=== PATIENT | male | born 1985 | race Caucasian/White ===

== ENCOUNTER → 2020-09-24 | Outpatient (CLI) | payer OTHER ==
--- NOTE | 2020-09-24 17:43 | KCIC ---
Three-view left knee dated 09/24/2020. No comparison available. CLINICAL INDICATION: Medial knee pain after injury. FINDINGS: 3 views left knee show normal bony alignment. No displaced fracture. No periostitis or bone destructi on. No apparent joint effusion or loose body. IMPRESSION: No acute findings. Electronically signed by: Erasto Ocasio MD (09/24/2020 5:40 PM) [id number]
== END ==
LOC: KCIC 14:40
PROVIDERS: ATTEND Family Medicine
DX: M25.562 Pain in left knee (principal)
CPT/HCPCS: 73562

== ENCOUNTER → 2021-06-19 | Outpatient (CLI) | payer OTHER ==
--- NOTE | 2021-06-19 12:59 | KCIC ---
MRI of the cervical spine without contrast 06/19/2021 CLINICAL HISTORY: Neck pain with radiates down the right arm for 2 weeks. TECHNIQUE: Unenhanced T1-weighted, T2-weighted and inversion recovery sagittal and gradient echo and T2-weighted axial images of the cervical spine were obtained. FINDINGS: Minimal lateral curvature of the cervical spine is seen convex to the right. There is strai ghtening of the normal cervical lordosis. Degenerative signal changes are seen involving all of the d isks of the cervical spine. Degenerative signal changes are seen within the marrow surrounding these discs. No area of abnormal signal intensity is seen involving the cervical spinal cord. At the C2-3 disc space there is a minimal generalized disc bulge. Degenerative changes are seen invol ving the uncovertebral and facet joints bilaterally. These findings do not result in significant cent ral spinal canal or neural foraminal stenosis. At the C3-4 disc space there is a mild generalized disc bulge. Degenerative changes are seen involvin g the uncovertebral and facet joints, left greater than right. These findings when combined do not re sult in significant central spinal canal stenosis. Mild left neural foraminal stenosis is seen. The r ight neural foramen is patent. At the C4-5 disc space there is a mild generalized disc bulge. Superimposed on this disc bulge is a r ight paracentral/lateral focal disc herniation. This measures 6 mm in AP diameter. Degenerative montaño es are seen involving the uncovertebral and facet joints bilaterally. These findings when combined re sult in mild central spinal canal stenosis without evidence of cord impingement. Severe right lateral recess stenosis and proximal right neural foraminal stenosis is seen. The left neural foramen is pat ent. At the C5-6 disc space there is a mild generalized disc bulge. Degenerative changes are seen involvin g the uncovertebral and facet joints bilaterally. These findings when combined do not result in signi ficant central spinal canal or neural foraminal stenosis. At the C6-7 disc space there is a mild generalized disc bulge. Degenerative changes are seen involvin g the uncovertebral and facet joints bilaterally. These findings do not result in significant central spinal canal or neural foraminal stenosis. At the C7-T1 disc space there is a minimal generalized disc bulge. Degenerative changes are seen invo lving the facet joints bilaterally. These findings when combined do not result in significant central spinal canal or neural foraminal stenosis. IMPRESSION: Degenerative changes are seen throughout the cervical spine. These findings result in mil d central spinal canal stenosis without evidence of cord impingement at C4-5 and mild left neural for aminal stenosis at C3-4. At the C4-5 disc space a right paracentral/lateral focal disc herniation is seen. This results in severe right lateral recess stenosis and right neural foraminal stenosis. Electronically signed by: Stevie Kan MD (06/19/2021 12:56 PM) [id number]
== END ==
LOC: KCIC MRI 09:46
PROVIDERS: ATTEND Nurse Practitioner
DX: M47.813 Spondylosis without myelopathy or radiculopathy, cervicothoracic region (principal); M50.31 Other cervical disc degeneration, high cervical region; M48.03 Spinal stenosis, cervicothoracic region; M43.8X2 Other specified deforming dorsopathies, cervical region
CPT/HCPCS: 72141

== ENCOUNTER → 2021-07-23 | Outpatient (CLI) | payer OTHER ==
[~2021-07-23] MED LIST: GABA300C18 PO; IBUP-1060 PO; IOHEXOL 180 MG/ML 10 ML VIAL. ONE; LEXAPRO20 MG PO; TIZA-75 PO; methylPREDNISolone ACETATE 40 MG/ML VIAL. ONE; methylPREDNISolone ACETATE 80 MG/ML VIAL. ONE
--- NOTE | 2021-07-23 13:07 | PDOC1 ---
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 and experienced a significant pain the base the neck and the right shoulder right upper extremity rating to the forearm and hand mostly in the anterior aspect of the deltoid also in the lateral posterior deltoid into the biceps into the forearm into the hand at times patient reports his right arm mobility is improved after some physical therapy and doing some massage techni ques and stretching but the pain is still significant patient reports he is exercising daily as well as doing the therapy exercises also taking gabapentin ibuprofen and tizanidine all of which help but only to a moderate extent patient reports no loss of motor function of the right upper extremity but significant fatigue with repetitive motions reaching over his head with his right arm and he has difficulty abducting the right shoulder past about 90 degrees. Patient reports the pain is becoming more constant stabbing in the neck and shoulder as well in the arm throbbing in the arm and hand with tingling and numbness in the arm as well radiating into quality. Patient rates his disability rating 0-10 10 being the worst is 8 within house possibilities and self-care activities 9 with recreation and sexual behavior 10 with social activity occupational activity and/support activities. Patient reports it wakes him sleep about twice a night does not affect his bowel bladder control or stability to walk but does affect his ability to work as he is a massage therapist using his upper extremities extensively with his job description. Patient did have an MRI scan of the cervical spine which we reviewed with him today showing degenerative changes with mild central canal stenosis without evidence of cord impingement C4-5 mild left neuroforaminal stenosis at C3-4 and C4-5 disc based right paracentral lateral focal disc herniation resulting in severe right lateral recess stenosis and right neuroforaminal stenosis. PAST MEDICAL HISTORY: PMH: Diverticulitis, depression PREVIOUS SURGERIES: Past Surgical Hx: None CURRENT MEDICATIONS: Current Meds: Active Scripts Medications Dose Route/Sig Max Daily Dose Days Date Category Tizanidine Hcl 4 Mg Tablet 1 Tab PO DAILY 07/23/21 Reported Ibuprofen 800 Mg Tablet 800 Mg PO DAILY PRN 07/23/21 Reported Gabapentin (Gabapentin) 300 Mg Capsule 300 Mg PO DAILY 07/23/21 Reported Lexapro (Escitalopram Oxalate) 20 Mg Tablet 1 Tab PO DAILY 07/23/21 Reported ALLERGIES; Allergies: Coded Allergies: No Known Drug Allergies (Unverified , 07/23/21) FAMILY HISTORY: Family Hx: No major medical problems or conditions that he is aware of SOCIAL HISTORY: Social Hx: Patient does not noemí alcohol does not smoke not use any illegal licit recreational drugs is lives with his spouse has 1 child living at home and lives locally in [facility] REVIEW OF SYSTEMS: ROS: Positive for those items mentioned in history of present illness, all systems are reviewed, otherwise negative ,and are complete full and well-documented on patient's chart. PHYSICAL EXAM: VS: Blood pressure is 106/66 pulse 63 respiration 16 temperature 9 7.6 F height is 5 foot 11 inches weight is 264 pounds. PE: PHYSICAL EXAMINATION: GENERAL: The patient is awake, alert, oriented, appropriate, very pleasant in demeanor HEENT: Shows normocephalic, atraumatic. Extraocular movements are intact and symmetrical. Patient wearing eyeglasses. Full hardy and mustache. Oral cavity: Mucous membranes moist and pink. Dentition is intact. NECK: Shows anterior throat supple without palpable lymphadenopathy noted. Swallow reflex symmetrical. CHEST: Shows normal on inspection. Breath sounds are clear bilaterally, no rales rhonchi or wheezes auscultated. HEART: Shows S1, S2 clear. No murmurs auscultated. ABDOMEN: Soft, nontender, nondistended. No palpable organomegaly is noted. BACK: Shows spine grossly in the midline. Normal-appearing cervical lordotic curvature. Cervical paraspinous muscles show symmetrical with inspection, on palpation some moderate tenderness diffusely bilaterally diffusely without significant radiation. Patient does show good rotation of motion cervical spine with lateral as well as full extension full forward flexion without significant pain reported. There is slightly increased thoracic kyphosis, some minor flattening of the lumbar lordotic curvature. EXTREMITIES: Upper extremities show deep tendon reflexes 2+ in the biceps and triceps tendons. Motor exam is 4 on a scale of 5 with right inner layer scrubber tender, biceps and triceps flexion and 5/5 on the left. Peripheral pulses are 2+ radial. No peripheral edema is noted bilaterally. Upper extremities are warm and dry to touch, equal in color and appearance. Shoulder shrug strong intact without loss of strength on resistance as is abduction of the shoulders 90 degrees without loss of strength on resisted but with significant pain reported in the right lateral shoulder with resistance, nontender on the left. SKIN: Shows warm and dry, good turgor. No edema. No sores, rashes or bruising throughout. IMPRESSION: Impression: 35-year-old male with approximate 2 with history increasing pain base the neck right upper extremity radicular fashion MRI scan cervical spine as noted History of diverticulitis History depression Plan: Options were discussed with the patient including serve medical management physical therapies and interventional techniques. Patient would like to interventional techniques. We discussed a cervical epidural steroid injection as well as anatomical models to describe the procedure. Risks were discussed including but not limited to: Bleeding, infection, possibility of epidural hematoma and subsequent neurological compromise, dural puncture, headaches, spinal cord and/or nerve damage, side effects of steroid medication, and poor results regarding pain control. Patient understands and wished to proceed. Patient will return to the clinic in approximately 2 weeks for follow-up, was counseled as to return appointment, activity level, and side effects aware of. Procedure cervical epidural steroid injection at the C6-7 level, using local anesthetic under sterile prep and drape using C-arm fluoroscopic guidance under local anesthesia medications injected ; 120 mg methylprednisolone +5 mL normal saline and 2 mL contrast; condition at discharge is stable patient tolerated procedure well. and had no complications PANTERA GRUBER MD Jul 23, 2021 13:07
--- NOTE | 2021-07-23 13:08 | PDOC4 ---
Procedure Note: ICD 10 Code: ICD 10 Code: M54.12 MFive 0.30 M4 8.02 Procedure Note: Patient was consented for cervical epidural steroid injection with fluoroscopic guidance. Risks were discussed including but not limited to: Bleeding, infection, possibility of epidural hematoma and subsequent neurological compromise, dural puncture, headaches, spinal cord and/or nerve damage, side effects of steroid medication, and poor results regarding pain control. Patient understands and wished to proceed. Procedure cervical epidural steroid injection at the C6-7 level, using local anesthetic under sterile prep and drape using C-arm fluoroscopic guidance under local anesthesia medications injected ; 120 mg methylprednisolone +5 mL normal saline and 2 mL contrast; condition at discharge is stable patient tolerated procedure well. and had no complications PANTERA GRUBER MD Jul 23, 2021 13:08
== END | disposition home or self-care (01) ==
LOC: PNCL 09:18
PROVIDERS: ATTEND Anesthesiology
DX: M50.10 Cervical disc disorder with radiculopathy, unspecified cervical region (principal); M48.02 Spinal stenosis, cervical region; M54.12 Radiculopathy, cervical region; Z79.899 Other long term (current) drug therapy
CPT/HCPCS: 62321; G0463; J1030; J1040; Q9965

== ENCOUNTER → 2021-08-11 | Outpatient (CLI) | payer OTHER ==
[~2021-08-11] MED LIST changes: -IOHEXOL 180 MG/ML 10 ML VIAL. ONE; -methylPREDNISolone ACETATE 40 MG/ML VIAL. ONE; -methylPREDNISolone ACETATE 80 MG/ML VIAL. ONE
--- NOTE | 2021-08-11 08:37 | PDOC ---
Progress Note - Pain Clinic Date of Service: DOS: DATE: 08/11/21 TIME: 08:33 Diagnosis: Dx: Cervical radiculopathy with cervical degenerative disc disease and cervical spinal stenosis History or Present Illness: HPI: 35-year-old male returns for follow-up status post cervical epidural steroid injection x1. Patient reports about 75% improvement initially now about 50% overall doing much better with the right upper extremity still difficulty with repetitive motions and weightbearing more than about 10 pounds becoming much mo re difficulty with the right upper extremity but still improved patient reports his pain is a 9 on scale 10 is worse over the past week 8 on average 5 to [place] still pain radiating the base the neck shoulder right upper extremity into his right bicep into the forearm and hand with numbness and tingling in the thumb and first finger patient wanted aching in the shoulder as well as radiating and is burning and stinging in the right hand patient reports it wakes him from sleep about once a night if he lays on his right side patient reports he is returned to work and is working full-time but with restriction of not lifting greater than 10 pounds with his right arm as it is becoming much more noticeable with returning to work recently. Patient continues to do stretching and strengthening exercises from previous physical therapy teaching is taking analgesics requiring much less [id number] analgesics in the last 2weeks but beginning to return with the pain returning in the right upper extremity. Patient reports no loss of motor function but significant fatigability right hand and upper extremity with repetitive motions and working. Physical Exam: VS: Blood pressure is 120/76 pulse 56 respirations 18 temperature 90.0 F height 5 foot 11 inches weight is 271 pounds. PE: PHYSICAL EXAMINATION: GENERAL: The patient is awake, alert, oriented, appropriate, very pleasant in demeanor HEENT: Shows normocephalic, atraumatic. Extraocular movements are intact and symmetrical. Oral cavity: Mucous membranes moist and pink. Dentition is intact. NECK: Shows anterior throat supple without palpable lymphadenopathy noted. Swallow reflex symmetrical. CHEST: Shows normal on inspection. Breath sounds are clear bilaterally. HEART: Shows S1, S2 clear. No murmurs auscultated. ABDOMEN: Soft, nontender, nondistended. No palpable organomegaly is noted. BACK: Shows spine grossly in the midline. Normal-appearing cervical lordotic curvature. Cervical paraspinous muscles show symmetrical inspection, on palpation some moderate tenderness diffusely in the inferior aspect the cervical paraspinous muscular more on the right than left also in the superior medial trapezius without specific trigger points or radiation. Patient shows full rotation motion cervical spine both laterally as well as full extension full forward flexion without significant difficulty as well. There is slightly increased thoracic kyphosis, some minor flattening of the lumbar lordotic curvature. Lumbar paraspinous muscles show symmetrical on inspection, on palpation shows some moderate tenderness diffusely throughout the upper, middle and lower distribution of the paraspinous muscles without specific trigger points, without radiation of pain. The patient has good rotational motion of the lumbar spine, both laterally as well as extension and flexion without significant difficulty. No tenderness over the spinous processes, sacrum or sacroiliac regions. EXTREMITIES: Lower extremities show deep tendon reflexes 2+ in the patellar and tendo calcaneus tendons. Motor exam is 5 on a scale of 5 with right dorsiflexion, extension, quadriceps and hamstring flexion and 5/5 on the left. Peripheral pulses are 1+ posterior tibial. No peripheral edema is noted bilaterally. Lower extremities are warm and dry. Upper extremities show deep tendon reflexes 2+ in the bicep tricep tendons motor exam is 4 scale 5 with right manager pathology strength bicep and tricep flexion and 5 out of 5 on the left. Shoulder shrug strong and intact without loss strength on resistance as is abduction of the shoulder 90 degrees bilaterally. SKIN: Shows warm and dry, good turgor. No edema. No sores, rashes or bruising throughout. Procedure: Procedure: Options were discussed with the patient. Patient's old chart was reviewed his current medication regimen updated current review of systems updated today as well. We will preauthorize patient for a second cervical epidural steroid injection he did very well with the first injection with pain returning in a C6- 7 dermatomal distribution the right upper extremity. Patient will continue with stretching and strength exercises in the meantime also will prescribe Medrol Dosepak with instructions side effects beware discussed with the new medication as well. Patient will return once approved for translaminar approach C6-7 level cervical epidural steroid injection with fluoroscopic guidance. Medication Injected: Med Injected: None Condition at Discharge: Condition at Discharge: Condition at discharge is stable. PANTERA GRUBER MD August 11, 2021 08:37
== END | disposition home or self-care (01) ==
LOC: PNCL 07:57
PROVIDERS: ATTEND Anesthesiology
DX: M50.10 Cervical disc disorder with radiculopathy, unspecified cervical region (principal); M48.02 Spinal stenosis, cervical region; Z79.899 Other long term (current) drug therapy
CPT/HCPCS: 99212; G0463

== ENCOUNTER → 2021-08-25 | Outpatient (CLI) | payer OTHER ==
[~2021-08-25] MED LIST changes: +DEXAMETHASONE PRES.FREE 10 MG/ML VIAL. ONE; +IOHEXOL 180 MG/ML 10 ML VIAL. ONE
--- NOTE | 2021-08-25 09:33 | PDOC ---
Progress Note - Pain Clinic Date of Service: DOS: DATE: 08/25/21 TIME: 09:29 Diagnosis: Dx: Cervical radiculopathy with cervical degenerative disease and cervical spinal stenosis History or Present Illness: HPI: 36-year-old male returns for follow-up status post cervical epidural steroid injection x1. Patient reports 60% improvement overall pain in his right arm significantly improved in the neck doing much better as well patient reports still some pain radiating to right upper extremity in the posterior deltoid lateral deltoid and anterior bicep and into the forearm but much less intense and more intermittent patient reports is aching and dull and in the base the neck and shoulders on the right side patient reports an 8 on scale 10 is worse over the past week 5 on average to its least is a 5 today patient report is aching and dull shooting at times but mostly just in the neck at this point patient reports no new deficits no difficulty with range of motion with some minor fatigue in the right arm with repetitive use but doing much better than previously patient reports is much better at night he is sleeping much better as well. Patient reports no new deficits. Physical Exam: VS: Blood pressure is 131/87 pulse 59 respirations 18 temperature is 98.4 F height 5 feet 11 inches weight is 268 pounds. PE: PHYSICAL EXAMINATION: GENERAL: The patient is awake, alert, oriented, appropriate, very pleasant in demeanor HEENT: Shows normocephalic, atraumatic. Extraocular movements are intact and symmetrical. Oral cavity: Mucous membranes moist and pink. Dentition is intact. NECK: Shows anterior throat supple without palpable lymphadenopathy noted. Swallow reflex symmetrical. CHEST: Shows normal on inspection. Breath sounds are clear bilaterally. HEART: Shows S1, S2 clear. No murmurs auscultated. ABDOMEN: Soft, nontender, nondistended. No palpable organomegaly is noted. BACK: Shows spine grossly in the midline. Normal-appearing cervical lordotic curvature. Cervical paraspinous muscles show symmetrical inspection, on palpation some moderate tenderness diffusely bilaterally diffusely without significant radiation in the lower distribution the paraspinous musculature and also into the superior medial trapezius on the right only but again without trigger points or asymmetry. Patient shows full rotation of motion cervical spine both laterally as well as full extension full forward flexion without significant difficulty. There is slightly increased thoracic kyphosis, some minor flattening of the lumbar lordotic curvature. EXTREMITIES: Upper extremities show deep tendon reflexes 2+ in the biceps and triceps tendons. Motor exam is 4 on a scale of 5 with right bank operations officer, biceps and tricep flexion and 5/5 on the left. Peripheral pulses are 2+ radial. No peripheral edema is noted bilaterally. Upper extremities are warm and dry to touch, equal in color and appearance. SKIN: Shows warm and dry, good turgor. No edema. No sores, rashes or bruising throughout. Procedure: Procedure: Options discussed with the patient. Patient's chart was reviewed his current medication regimen updated current review of systems updated today as well. We will proceed with a cervical epidural steroid injection today with fluoroscopic guidance. Risks were discussed including but not limited to: Bleeding, infection, possibility of epidural hematoma and subsequent neurological compromise, dural puncture, headaches, spinal cord and/or nerve damage, side effects of steroid medication, and poor results regarding pain control. Patient understands and wished to proceed. Patient will return to the clinic in appr oximately 2 weeks for follow-up, was counseled as to return appointment, activity level, and side effects to be aware of. Medication Injected: Med Injected: Procedure cervical epidural steroid injection at the C6-7 level, using local anesthetic under sterile prep and drape using C-arm fluoroscopic guidance under local anesthesia medications injected ; 20 mg dexamethasone +5 mL normal saline and 2 mL contrast; condition at discharge is stable patient tolerated procedure well. and had no complications Condition at Discharge: Condition at Discharge: Condition at discharge is stable, patient tolerated the procedure well and had no complications. PANTERA GRUBER MD August 25, 2021 09:33
--- NOTE | 2021-08-25 09:34 | PDOC4 ---
Procedure Note: ICD 10 Code: ICD 10 Code: M54.12 M50.30 M48.02 Procedure Note: Patient was consented for cervical epidural steroid injection with fluoroscopic guidance. Risks were discussed including but not limited to: Bleeding, infection, possibility of epidural hematoma and subsequent neurological compromise, dural puncture, headaches, spinal cord and/or nerve damage, side effects of steroid medication, and poor results regarding pain control. Patient understands and wished to proceed. Procedure cervical epidural steroid injection at the C6-7 level, using local a nesthetic under sterile prep and drape using C-arm fluoroscopic guidance under local anesthesia medications injected ; 20 mg dexamethasone +5 mL normal saline and 2 mL contrast; condition at discharge is stable patient tolerated procedure well. and had no complications PANTERA GRUBER MD August 25, 2021 09:34
== END | disposition home or self-care (01) ==
LOC: PNCL 08:29
PROVIDERS: ATTEND Anesthesiology
DX: M50.10 Cervical disc disorder with radiculopathy, unspecified cervical region (principal); M48.02 Spinal stenosis, cervical region; M54.12 Radiculopathy, cervical region; Z79.899 Other long term (current) drug therapy
CPT/HCPCS: 62321; J1100; Q9965